=== PATIENT | male | born 2000 | race African-American/Black ===

== ENCOUNTER 2025-04-24 12:48 | Emergency (ER) | payer OTHER ==
[2025-04-24] MEDS ORDERED: Sodium Chloride 0.9% 10 ML Syringe FLUSH PRN (12:56)
[2025-04-24 13:32] LABS: BASOPHILS ABSOLUTE AUTO 0.0 K/mm3 (0.0-0.2); BASOPHILS PERCENT AUTO 0.3 % (0.0-1.0); EOSINOPHILS ABSOLUTE AUTO 0.1 K/mm3 (0.0-0.4); EOSINOPHILS PERCENT AUTO 1.4 % (0.0-6.0); IMMATURE GRAN ABSOLUTE AUTO 0.02 K/mm3 (0.00-0.05); IMMATURE GRAN PERCENT AUTO 0.2 % (0.0-0.4); LYMPHOCYTES ABSOLUTE AUTO 2.5 K/mm3 (1.0-4.8); LYMPHOCYTES PERCENT AUTO 27.6 % (24.0-44.0); MEAN PLATELET VOLUME 9.6 fl (9.4-12.4); MONOCYTES ABSOLUTE AUTO 0.7 K/mm3 (0.0-0.8); MONOCYTES PERCENT AUTO 7.5 % (0.0-8.0); NEUTROPHILS ABSOLUTE AUTO 5.8 K/mm3 (1.8-7.7); NEUTROPHILS PERCENT AUTO 63.0 % (41.0-71.0); NRBC ABSOLUTE 0.00 (0.00-0.02); NRBC PERCENT 0.0 % (0.0-0.2); PLATELET COUNT,PLT 266 K/mm3 (150-400); RED BLOOD CELL COUNT 6.01 M/mm3 (4.52-5.90); WHITE BLOOD CELL COUNT,WBC 9.20 K/mm3 (3.9-11.3)
[2025-04-24 13:55] LABS: A/G RATIO 1.1 (1-2); ALANINE AMINOTRANSFERASE,ALT 23.0 U/L (16-63); ASPARTATE AMNIOTRANSFERASE,AST 14.0 U/L (15-37); BILIRUBIN TOTAL 0.4 mg/dL (0.2-1.0); BLOOD UREA NITROGEN,BUN 12.0 mg/dL (7-18); CARBON DIOXIDE,CO2 31.0 mEq/L (21-32); CHLORIDE,CL 100.0 mEq/L (98-107); CREATININE 0.9 mg/dL (0.7-1.3); EST CRCL DRUG DOSING (CG) 137.12 mL/min; ESTIMATED GFR 124.0 mL/min (>60); GLUCOSE RANDOM 84.0 mg/dL (70-99); POTASSIUM,K 4.1 mEq/L (3.5-5.1); PROTEIN TOTAL,TP 7.5 g/dl (6.4-8.2); SODIUM,NA 138.0 mEq/L (136-145); TROPONIN I HIGH SENSITIVITY 4.0 pg/mL (<=76)
[2025-04-24] MEDS: Ketorolac 30 MG/ML SDV IVPUSH ONE (15:00)
== END 2025-04-24 15:20 | disposition home or self-care (01) ==
LOC: JD.ED 12:48
DX: R07.89 Other chest pain (principal); F17.200 Nicotine dependence, unspecified, uncomplicated
CPT/HCPCS: 36415; 71045; 80053; 84484; 85025; 93005; 96361; 96374; 99285; J1885; J7030; 93010; 99283